=== PATIENT | male | born 1935 | race Asian ===

== ENCOUNTER 2020-06-21 21:35 | Inpatient (IN) | payer MEDICAID, SELFPAY ==
[~2020-06-21] VITALS: Ht 152.4 cm; Wt 51.7 kg
--- NOTE | 2020-06-21 21:40 | NUR ---
Patient to ER bed 1 to gown for evaluation. Side rails up.
--- NOTE | 2020-06-21 21:40 | NUR ---
# 20 gauge angiocath placed to LAC placed by FIRE prior to arrival. Flushed with 10 cc of normal saline. No evidence of infiltration noted. Patient tolerated well.
--- NOTE | 2020-06-21 21:42 | NUR ---
pt BIB BLS from home c/o of syncopal episode. pt went to stand up from sitting down and fell forward and hit his head on a table. pt was experiencing a headache and pain in his eyes previous to standing. pt denies any loss of consciousness. pt states he is not in any pain at the moment. pt states he has had one previous episode similar to this one about 5-6 months ago. pt denies chest pain, SOB, fever, chills, nausea, vomiting, blurry vision.
--- NOTE | 2020-06-21 21:47 | NUR ---
[facility] - BS 157. aware.
[2020-06-21 21:48] VITALS: BP_SYST 136
--- NOTE | 2020-06-21 21:55 | NUR ---
lab at bedside for blood draw.
--- NOTE | 2020-06-21 21:55 | NUR ---
ER Dr. NAYAK at bedside examining patient.
[2020-06-21 22:01] LABS: BASOPHILS % (AUTO) 0.4 % (0.0-2.0); EOSINOPHILS # (AUTO) 0.1 K/uL (0.0-0.4); EOSINOPHILS % (AUTO) 2.2 % (0.0-4.0); HEMATOCRIT 33.8 % (36-54); HEMOGLOBIN 11.5 g/dL (14.0-18.0); LYMPHOCYTES # (AUTO) 1.1 K/uL (1.0-5.5); LYMPHOCYTES % (AUTO) 17.6 % (20.5-51.5); MEAN CORPUSCULAR HEMOGLOBIN 31 pg (27-31); MEAN CORPUSCULAR HGB CONC 34 % (32-36); MEAN CORPUSCULAR VOLUME 90 fL (79.0-98.0); MONOCYTES # (AUTO) 0.5 K/uL (0.0-1.0); MONOCYTES % (AUTO) 8.6 % (1.7-9.3); NEUTROPHILS # (AUTO) 4.5 K/uL (1.8-7.7); NEUTROPHILS % (AUTO) 71.2 % (40.0-70.0); PLATELET COUNT (AUTO) 260 K/uL (130-430); RED BLOOD CELL COUNT(AUTO) 3.75 MIL/uL (4.2-6.2); RED CELL DISTRIBUTION WIDTH 14.6 % (9.0-15.0); WHITE BLOOD COUNT (AUTO) 6.3 K/uL (4.8-10.8)
--- NOTE | 2020-06-21 22:11 | NUR ---
radiology at bedside for chest xray.
--- NOTE | 2020-06-21 22:43 | NUR ---
spoke with son of patient and gave an update with consent of patient.
[2020-06-21 22:49] LABS: ANION GAP 5 (5-15); CHLORIDE 99 mmol/L (98-107); GLUCOSE 151 mg/dL (70-99); POTASSIUM 4.6 mmol/L (3.5-5.1); SODIUM SERUM 131 mmol/L (136-145); UREA NITROGEN, BLOOD 32 mg/dL (8-21)
[2020-06-21 22:55] LABS: ALANINE AMINOTRANSFERASE 12 U/L (12-78); ALBUMIN 3.1 g/dL (3.4-4.8); ASPARTATE AMINOTRANSFERASE 16 U/L (10-37); TOTAL BILIRUBIN 0.3 mg/dL (0.0-1.0)
[2020-06-21 22:58] LABS: PROTHROMBIN TIME 10.4 SECS (9.5-12.5)
--- NOTE | 2020-06-21 23:01 | NUR ---
critical lab reporting - troponin 0.345. aware.
[2020-06-21] MEDS ORDERED: ASPIRIN 81 MG TAB.CHEW PO ONE (23:15)
--- NOTE | 2020-06-21 23:20 | NUR ---
dr. yoder at bedside speaking with patient.
--- NOTE | 2020-06-21 23:31 | NUR ---
called and spoke with son of patient, son will be coming to hospital to speak with patient.
--- NOTE | 2020-06-21 23:50 | NUR ---
patients son at bedside speaking with dr. yoder.
[2020-06-21] MEDS ORDERED: ENAL5TAB77 PO (23:57)
[2020-06-21] MEDS ORDERED: ASPI-1155 PO (23:57)
[2020-06-21] MEDS ORDERED: ATOR10TA68 PO (23:57)
[2020-06-21] MEDS ORDERED: CLOP75TA32 PO (23:57)
--- NOTE | 2020-06-21 23:57 | NUR ---
Medication reconciliation completed with information provided by patient. Any prior medication reconciliation on file was reviewed and corrected.
--- NOTE | 2020-06-21 23:57 | NUR ---
Patient's code status is Full code paperwork completed and placed in chart.
--- NOTE | 2020-06-22 00:05 | NUR ---
PT AMBULATED TO RESTROOM WITH STEADY GAIT.
--- NOTE | 2020-06-22 01:34 | NUR ---
SPOKE WITH MEAT PASSERRADHA TO REQUEST TELE BED.
--- NOTE | 2020-06-22 01:34 | NUR ---
RECEIVED ADMIT ORDERS FROM DR. CORONADO.
--- NOTE | 2020-06-22 01:40 | NUR ---
COVID SWAB COLLECTED AND SENT TO LAB.
--- NOTE | 2020-06-22 02:24 | NUR ---
Patient will be admitted to care of KATT. Admitted to TELE unit. Will go to room 112A. Belongings list completed. Complete and up to date summary report printed. SBAR report to be given at bedside with opportunity for questions.
--- NOTE | 2020-06-22 02:27 | NUR ---
Transfer to TELE via ACLS protocol. Licensed nurse present. IV present no signs or symptoms of infiltration.
--- NOTE | 2020-06-22 02:31 | NUR ---
ADMISSION NOTE Received patient from ER via gurirving, received report from RN. Patient admitted with diagnosis of elevated troponin. Patient oriented to hospital routine, call light, toileting and safety-patient verbalized understanding.
[2020-06-22 02:49] VITALS: BP_SYST 157
--- NOTE | 2020-06-22 02:59 | NUR ---
ADMISSION PHYSICAL ASSESSMENT NOTES; took over care form nurse Batsheva. pt. awake, alert , oriented to his room and use of call light and bed control. denies any chest pain nor discomfort. HX of fall, near syncope and elevated Troponin. cardiac consult with Dr. Ventura. placed on surveillance monitor and shows sinus rhythm. moves all extremities. instructed to be bed rest for now, gave urinal. IV lock on left antecubital. on fall risk precaution, bed alarm on. on room air, no shortness of breath, noted bouts of non productive cough.
--- NOTE | 2020-06-22 03:13 | NUR ---
NOTES: pt. get out of bed without calling, bed alarm went off, pt. ambulated to the restroom and voided. reminded pt. again to use call light for help and stay in bed.
--- NOTE | 2020-06-22 04:15 | NUR ---
NOTES; pt. checked and sleeping comfortably. condition guarded. cardiac pattern remains sinus rhythm. on fall riak precaution. pt. room close to nurses station, bed alarm on.
--- NOTE | 2020-06-22 04:16 | NUR ---
CONSULT: CONSULT CALLED FOR DR. ZELAYA I SPOKE WITH PATRICE GRECO REASON FOR CONSULT: ELEVATED TROPONIN REQUESTING CONSULT: DR. BOLIVAR TELETYPEWRITER OPERATOR PHONE NUMBER: [phone]
[2020-06-22 04:50] VITALS: BP_SYST 135
--- NOTE | 2020-06-22 04:50 | NUR ---
NOTES: pt. HR drops on the low 40's. woke up and checked VS BP 135/69 HR 61, asymptomatic, denies any chest pain nor discomfort. continue to monitor.
--- NOTE | 2020-06-22 05:45 | NUR ---
NOTES: pt. get out of bed without using call light, forgetful, assisted to the restroom, able to ambulate. back to bed and repositioned self.
[2020-06-22] MEDS ORDERED: LORazepam 2 MG/ML VIAL IVP PRN (06:15)
[2020-06-22] MEDS ORDERED: HYDROcodone/ACETAMIN 10-325 MG TAB PO PRN (06:15)
[2020-06-22] MEDS ORDERED: NALOXONE HCL 0.4 MG/ML AMP (NARCAN) IVP PRN ×2 (06:15)
[2020-06-22] MEDS ORDERED: HYDROcodone/ACETAMIN 5-325 MG TAB (NORCO/ VICODIN) PO PRN (06:15)
[2020-06-22] MEDS ORDERED: ACETAMINOPHEN 325 MG TABLET PO PRN (06:15)
[2020-06-22] MEDS ORDERED: ONDANSETRON HCL 4 MG/2 ML VIAL IVP PRN (06:15)
--- NOTE | 2020-06-22 06:42 | NUR ---
CLOSING NOTES; CLOSING NOTES; pt. back to sleep. no distress. on room air. IV lock on left antecubital. cardiology consult with Dr. Ventura this am for bradycardia and elevated troponin. call light within reach. on fall risk precaution.
--- NOTE | 2020-06-22 06:54 | NUR ---
RENAL CONSULTATION PAGED REASON FOR CONSULTATION:[place] WAS CONSULT CALLED?Y PERSON WHO WAS NOTIFIED:PATRICE CONSULTING PHYSICIAN:OSCAR MESA POWER PLANT OPERATOR APPRENTICE SPECIALTY:NEPHRO POWER PLANT OPERATOR APPRENTICE PHONE NUMBER:[phone] REQUESTING PHYSICIAN:NICO SHANNON
[2020-06-22 07:59] LABS: BASOPHILS % (AUTO) 0.7 % (0.0-2.0); EOSINOPHILS # (AUTO) 0.1 K/uL (0.0-0.4); EOSINOPHILS % (AUTO) 1.4 % (0.0-4.0); HEMATOCRIT 31.2 % (36-54); HEMOGLOBIN 10.7 g/dL (14.0-18.0); LYMPHOCYTES # (AUTO) 1.1 K/uL (1.0-5.5); LYMPHOCYTES % (AUTO) 18.7 % (20.5-51.5); MEAN CORPUSCULAR HEMOGLOBIN 31 pg (27-31); MEAN CORPUSCULAR HGB CONC 34 % (32-36); MEAN CORPUSCULAR VOLUME 90 fL (79.0-98.0); MONOCYTES # (AUTO) 0.6 K/uL (0.0-1.0); MONOCYTES % (AUTO) 10.4 % (1.7-9.3); NEUTROPHILS # (AUTO) 4.2 K/uL (1.8-7.7); NEUTROPHILS % (AUTO) 68.8 % (40.0-70.0); PLATELET COUNT (AUTO) 251 K/uL (130-430); RED BLOOD CELL COUNT(AUTO) 3.47 MIL/uL (4.2-6.2); RED CELL DISTRIBUTION WIDTH 14.5 % (9.0-15.0)
[2020-06-22 08:00] VITALS: BP_SYST 166
[2020-06-22 08:03] LABS: ANION GAP 5 (5-15); CALCIUM 8.2 mg/dL (8.4-11.0); CHLORIDE 101 mmol/L (98-107); CREATININE 1.36 mg/dL (0.55-1.30); GLUCOSE 93 mg/dL (70-99); PHOSPHORUS 3.6 mg/dL (2.7-4.5); POTASSIUM 4.9 mmol/L (3.5-5.1); SODIUM SERUM 133 mmol/L (136-145); THYROID STIMULATING HORMONE 2.81 uIu/mL (0.36-3.74); UREA NITROGEN, BLOOD 30 mg/dL (8-21)
[2020-06-22 08:19] LABS: CHOLESTEROL 126 mg/dL (<200); HDL CHOLESTEROL 67 mg/dL (>45); LDL CHOLESTEROL 51 mg/dL (<100); TRIGLYCERIDES 38 mg/dL (30-150)
[2020-06-22] MEDS ORDERED: NS 500 ML IV ONE (08:30)
[2020-06-22] MEDS: ASPIRIN 81 MG TAB.CHEW PO SCH (08:35)
[2020-06-22] MEDS: LISINOPRIL 10 MG TABLET (PRINIVIL) PO SCH (08:35)
[2020-06-22] MEDS: CLOPIDOGREL BISULFATE 75 MG TABLET PO SCH (08:36)
--- NOTE | 2020-06-22 08:40 | NUR ---
alert, oriented, persistently insist to go to the bathroom, with standby assistance, gait somewhat shuffling but steady. bp taken again by the author, 166/93, with HR 78,all po meds given at this time
[2020-06-22 12:09] VITALS: BP_SYST 134
[2020-06-22] MEDS: NORMAL SALINE 5 ML DISP.SYRIN IVF SCH ×2 (13:31→21:11)
--- NOTE | 2020-06-22 13:40 | NUR ---
seen by bookie, aware of troponin elevation. no new orders. seen by attending, bun/cr trending down, renal consulation for this patient. ( 02/10.36)
[2020-06-22] MEDS ORDERED: NORMAL SALINE 5 ML DISP.SYRIN IVF SCH (14:00)
[2020-06-22] MEDS: NACL 0.9% 1,000 ML IV SCH (14:16)
[2020-06-22 15:54] VITALS: BP_SYST 158
--- NOTE | 2020-06-22 16:10 | NUR ---
seen by nephro, ivf initiated, NS at 65cc per hour. explained why he needs it, agreed with the plan. IVF running now
--- NOTE | 2020-06-22 18:07 | NUR ---
troponin trending up, last one today .396, dr khan made aware. Troponin to repeat tomorrow am. son called, referred him to talk to the unemployment specialist in am, [place] [phone]
--- NOTE | 2020-06-22 19:20 | NUR ---
Pt was received lying in bed fully awake, alert and oriented x4. Pt denies pain or discomfort at this time. No acute distress noted. playground monitor is showing SR with BBB and HR's in the 60's. IVF of NS is infusing well in LAC at 65ml/hr without any signs of infiltration. Fall and safety precautions are in place.
[2020-06-22 20:00] VITALS: BP_SYST 130
[2020-06-22] MEDS: ATORVASTATIN 10 MG TABLET PO SCH (20:47)
--- NOTE | 2020-06-22 21:30 | NUR ---
Pt is resting quietly in bed. IVF is infusing well in LAC. Call light and bedside items are within pt's reach. No c/o pain or discomfort.
--- NOTE | 2020-06-22 23:00 | NUR ---
Pt is sleeping without any distress noted. IVF is infusing well in [facility]. Fall and safety precautions are in place.
[2020-06-23] VITALS: BP_SYST 132
--- NOTE | 2020-06-23 01:00 | NUR ---
Pt is sleeping comfortably in bed. IVF is infusing well in [facility]. Fall and safety precautions are in place.
--- NOTE | 2020-06-23 03:08 | NUR ---
Pt is awake and standing at his bedside. Pt had just voided in his urinal. No c/o pain or discomfort. IVF is infusing well in LAC. Pt got back in bed after using his urinal. Fall and safety precautions are in place.
--- NOTE | 2020-06-23 05:00 | NUR ---
Pt is sleeping comfortably in bed. IVF is infusing well in [facility]. Fall and safety precautions are in place.
[2020-06-23] MEDS: NACL 0.9% 1,000 ML IV SCH ×2 (05:28→21:04)
[2020-06-23] MEDS: NORMAL SALINE 5 ML DISP.SYRIN IVF SCH ×3 (05:30→22:00)
[2020-06-23 06:30] LABS: BASOPHILS % (AUTO) 0.7 % (0.0-2.0); EOSINOPHILS # (AUTO) 0.2 K/uL (0.0-0.4); EOSINOPHILS % (AUTO) 3.6 % (0.0-4.0); HEMATOCRIT 31.5 % (36-54); HEMOGLOBIN 10.8 g/dL (14.0-18.0); LYMPHOCYTES # (AUTO) 1.1 K/uL (1.0-5.5); LYMPHOCYTES % (AUTO) 17.8 % (20.5-51.5); MEAN CORPUSCULAR HEMOGLOBIN 31 pg (27-31); MEAN CORPUSCULAR HGB CONC 34 % (32-36); MEAN CORPUSCULAR VOLUME 90 fL (79.0-98.0); MONOCYTES # (AUTO) 0.7 K/uL (0.0-1.0); MONOCYTES % (AUTO) 11.5 % (1.7-9.3); NEUTROPHILS # (AUTO) 4.1 K/uL (1.8-7.7); NEUTROPHILS % (AUTO) 66.4 % (40.0-70.0); PLATELET COUNT (AUTO) 235 K/uL (130-430); RED BLOOD CELL COUNT(AUTO) 3.51 MIL/uL (4.2-6.2); RED CELL DISTRIBUTION WIDTH 14.7 % (9.0-15.0); WHITE BLOOD COUNT (AUTO) 6.1 K/uL (4.8-10.8)
--- NOTE | 2020-06-23 06:47 | NUR ---
Pt is awake and resting comfortably in bed. IVF is infusing well in LAC. Fall and safety precautions are in place. Will endorse to day shift nurse.
[2020-06-23 07:14] LABS: ALANINE AMINOTRANSFERASE 7 U/L (12-78); ALBUMIN 2.8 g/dL (3.4-4.8); ANION GAP 5 (5-15); ASPARTATE AMINOTRANSFERASE 17 U/L (10-37); CALCIUM 8.2 mg/dL (8.4-11.0); CHLORIDE 102 mmol/L (98-107); CREATININE 1.19 mg/dL (0.55-1.30); GLUCOSE 86 mg/dL (70-99); POTASSIUM 4.9 mmol/L (3.5-5.1); SODIUM SERUM 134 mmol/L (136-145); THYROID STIMULATING HORMONE 2.85 uIu/mL (0.36-3.74); TOTAL BILIRUBIN 0.4 mg/dL (0.0-1.0); UREA NITROGEN, BLOOD 23 mg/dL (8-21)
--- NOTE | 2020-06-23 07:20 | NUR ---
RECEIVED REPORT FROM SKIVER WELT END RN. BETH ARTEAGAOX4, FRIENDLY, RESTING IN BED, NAD NOTED.
[2020-06-23 08:00] VITALS: BP_SYST 147
[2020-06-23] MEDS: LISINOPRIL 10 MG TABLET (PRINIVIL) PO SCH (09:01)
[2020-06-23] MEDS: CLOPIDOGREL BISULFATE 75 MG TABLET PO SCH (09:02)
[2020-06-23] MEDS: ASPIRIN 81 MG TAB.CHEW PO SCH (09:02)
--- NOTE | 2020-06-23 09:25 | NUR ---
OFF FLOOR FOR DIAGNOSTIC TEST. MED PASS DONE, Pt TOLERATED WELL, ATE 75% OF BREAKFAST. RESP REG NON-LABORED.
--- NOTE | 2020-06-23 09:51 | NUR ---
PT RETURNED TO FLOOR AAOX4, RESP REG NON-LABORED, NAD NOTED, NURSING SHIFT ASSESSMENT DONE
--- NOTE | 2020-06-23 10:15 | NUR ---
MED PASS DONE, PT TOLERATED PO MEDS WELL. VS WNL, NAD NOTED. PENDING CT SCAN RESULTS.
[2020-06-23 12:07] VITALS: BP_SYST 150
--- NOTE | 2020-06-23 13:00 | NUR ---
PT REQUESTING CLIENT SERVICE ASSOCIATE TO CALL MD FOR D/C, PT WANTS TO GO HOME. AFTER DISCUSSION AND EXPLANATION OF WHY THE DR HELD HIS D/C, PT BECAME CALMER AND VERBALIZED UNDERSTANDING.
--- NOTE | 2020-06-23 15:28 | NUR ---
CONSULT UROLOGY SEVERE HYDRONEPHROSIS DR KRISHNA PRABHA [phone] S/W [facility] OFFICE
[2020-06-23 16:10] VITALS: BP_SYST 140
--- NOTE | 2020-06-23 17:30 | NUR ---
S/W DR PRABHA KRISHNA, DISCUSSED US RESULTS FROM YESTERDAY THAT ARE NOW CONFIRMED TO BE SEVERE HYDRONEPHROSIS W/ OBSTRUCTION. NEW ORDERS GIVEN: FOR COLON CATH W/ U/A & U/A C&S; AM LABS(PSA,CBC,BMP).
--- NOTE | 2020-06-23 18:00 | NUR ---
COLON CATH INSERTED, 16 F, PT TOLERATED WELL.MYSELF ,PLUS TWO OTHER NURSES AT BEDSIDE. URINE OUTPUT POST COLON INSERTION 650 ML. FC SECURED TO PATIENTS , DRAINING TO GRAVITY. U/A AND UC COLLECTED AND SENT TO LAB, FOR ANALYSIS.
[2020-06-23 18:55] LABS: CLARITY/URINE CLEAR (CLEAR); COLOR,URINE YELLOW (YELLOW); GLUCOSE,URINE NEGATIVE (NEGATIVE); KETONES,URINE NEGATIVE (NEGATIVE); PROTEIN URINE NEGATIVE (NEGATIVE)
[2020-06-23 18:56] LABS: BILIRUBIN,URINE NEGATIVE (NEGATIVE); BLOOD, URINE TRACE (NEGATIVE); LEUKOCYTE ESTERASE ,URINE NEGATIVE (NEGATIVE); NITRITE, URINE NEGATIVE (NEGATIVE); UROBILINOGEN,URINE 0.2 (0.2-1.0)
[2020-06-23 18:58] LABS: WBC,URINE 0-3 /HPF (0-3)
[2020-06-23 18:59] LABS: BACTERIA,URINE FEW /HPF (None Seen); YEAST,URINE None Seen /HPF (None Seen)
[2020-06-23 19:00] LABS: MUCUS,URINE None Seen /LPF (None Seen); TRICHOMONAS,URINE None Seen /HPF (None Seen)
--- NOTE | 2020-06-23 19:17 | NUR ---
REPORT TO DISASTER RECOVERY ANALYST KARLA MARIANO AT BS. PT CONT SITTING ON BED, LEGS DANGLING, EATING DINNER. COLON CATH TO GRAVITY. NAD NOTED.
--- NOTE | 2020-06-23 19:20 | NUR ---
Pt was received sitting on his bed with both feet on the floor. Pt is fully awake, alert and oriented x4. Melo catheter to gravity drainage noted with blood tinged urine and no blood clots noted. Pt denies pain or discomfort at this time. IVF of NS is infusing well in LAC at 65ml/hr without any signs of infiltration. Fall and safety precautions are in place.
--- NOTE | 2020-06-23 19:45 | NUR ---
Pt's son Youseff called and was given updates. All his questions were answered. Pt's son wants to speak with Crude Oil Driver and Urologist. He was informed messages will be left on pt's chart for both doctors to call him back. He prefers call back at [phone].
[2020-06-23 20:00] VITALS: BP_SYST 148
[2020-06-23] MEDS: ATORVASTATIN 10 MG TABLET PO SCH (20:42)
--- NOTE | 2020-06-23 20:42 | NUR ---
HS medication given. IVF is infusing well in LAC. Melo cath to gravity drainage still with blood tinged urine, but no blood clots seen. Fall and safety precautions are in place.
--- NOTE | 2020-06-23 22:35 | NUR ---
Pt is resting quietly in bed. No c/o pain or discomfort. IVF is infusing well in LAC. Fall and safety precautions are in place.
--- NOTE | 2020-06-24 | NUR ---
Pt is awake and resting quietly in bed. No c./\/o pain or discomfort. IVF is infusing well in LAC. Fall and safety precautions are in place.
--- NOTE | 2020-06-24 02:00 | NUR ---
Pt is sleeping comfortably in bed. No respiratory distress noted. IVF is infusing well in LAC. Fall and safety precautions are in place.
--- NOTE | 2020-06-24 04:00 | NUR ---
No respiratory distress noted. Pt is sleeping comfortably in bed. Fall and safety precautions are in place. Melo Cath to gravity drainage still draining blood tinged urine, but no blood clots seen. Fall and safety precautions are in place.
[2020-06-24] MEDS: NORMAL SALINE 5 ML DISP.SYRIN IVF SCH ×2 (06:00→14:00)
--- NOTE | 2020-06-24 06:00 | NUR ---
Pt is awake and resting comfortably in bed. Melo Cath to gravity drainage remains secured to pt's left thigh and draining blood tinged urine. No blood clots noted. Pt denies pain or discomfort. IVF is infusing well in LAC. Fall and safety precautions are in place. Will endorse to day shift nurse.
[2020-06-24] MEDS: NACL 0.9% 1,000 ML IV SCH (06:03)
[2020-06-24 06:20] LABS: BASOPHILS % (AUTO) 0.6 % (0.0-2.0); EOSINOPHILS # (AUTO) 0.2 K/uL (0.0-0.4); EOSINOPHILS % (AUTO) 2.4 % (0.0-4.0); HEMATOCRIT 31.6 % (36-54); HEMOGLOBIN 10.7 g/dL (14.0-18.0); LYMPHOCYTES # (AUTO) 1.3 K/uL (1.0-5.5); LYMPHOCYTES % (AUTO) 16.5 % (20.5-51.5); MEAN CORPUSCULAR HEMOGLOBIN 31 pg (27-31); MEAN CORPUSCULAR HGB CONC 34 % (32-36); MEAN CORPUSCULAR VOLUME 90 fL (79.0-98.0); MONOCYTES # (AUTO) 0.8 K/uL (0.0-1.0); MONOCYTES % (AUTO) 10.6 % (1.7-9.3); NEUTROPHILS # (AUTO) 5.3 K/uL (1.8-7.7); NEUTROPHILS % (AUTO) 69.9 % (40.0-70.0); PLATELET COUNT (AUTO) 235 K/uL (130-430); RED CELL DISTRIBUTION WIDTH 14.7 % (9.0-15.0); WHITE BLOOD COUNT (AUTO) 7.6 K/uL (4.8-10.8)
[2020-06-24 06:36] LABS: ANION GAP 4 (5-15); CALCIUM 8.1 mg/dL (8.4-11.0); CHLORIDE 101 mmol/L (98-107); GLUCOSE 86 mg/dL (70-99); POTASSIUM 4.9 mmol/L (3.5-5.1); SODIUM SERUM 131 mmol/L (136-145); UREA NITROGEN, BLOOD 24 mg/dL (8-21)
--- NOTE | 2020-06-24 07:30 | NUR ---
Opening notes, Received pt in bed, pt is aaox4, denies pain, no sob, no fever. pt has pete cath draing pink colored urine. safety precaution in place. call light in reach. bed in low position. encouraged to call for assist and pain meds. will cont to monitor.
[2020-06-24 07:50] VITALS: BP_SYST 148
--- NOTE | 2020-06-24 08:10 | NUR ---
dr morgan and dr khan here and seen patient.
[2020-06-24] MEDS: LISINOPRIL 10 MG TABLET (PRINIVIL) PO SCH (08:24)
[2020-06-24] MEDS ORDERED: TAMSULOSIN HCL 0.4 MG CAP PO SCH (09:00)
[2020-06-24] MEDS ORDERED: FINASTERIDE 5 MG TABLET (PROSCAR) PO SCH (09:00)
[2020-06-24] MEDS ORDERED: FINA5TAB3 PO (10:15)
[2020-06-24] MEDS ORDERED: TAMS-11 PO (10:15)
[2020-06-24 12:11] VITALS: BP_SYST 114
[2020-06-24 12:55] VITALS: BP_SYST 114
--- NOTE | 2020-06-24 16:00 | NUR ---
D/C Patient Patient given medication reconciliation form and D/C instructions. Exit Care provided. Patient verbalized understanding. MD discussed with patient the results and treatment provided. Ambulatory with steady gait for discharge to home. Patient in stable condition, ID band removed. IV catheter removed, intact and dressing applied, no active bleeding. eRx of flomax and finasteride given. Patient educated on pain management. All belongings sent with patient. Addendum: 06/24/20 at 1622 by Quan Odell RN Pt's david Kim picked up patient, Julio said pt already has an appointment with pt's PMD and they will get the Urology consult on Sunday. Julio taught on draining the pt's leg bag and changing to the pete bag at night.
[2020-06-25 08:06] LABS: % FREE PSA 46.3 % (.); FREE PSA 0.37 ng/mL; PROSTATE SPECIFIC AG TOTAL 0.8 ng/mL (0.0-4.0)
--- NOTE | 2020-06-30 11:45 | NUR ---
Discharge Follow Up Phone Call Phoned the number listed for patient, , and spoke with patient's son, Anjali. He stated patient was doing fine. They were managing the pete care. Patient was currently at his follow up appointment with his PCP and obtaining a urology referral. No questions or concerns.
== END 2020-06-24 17:20 | disposition home or self-care (01) | DRG 422 ==
LOC: SED 21:35 → STU 06-22 01:33
PROVIDERS: ADMIT Internal Medicine Hospice and Palliative Medicine; ATTEND Internal Medicine Hospice and Palliative Medicine
DX: E86.0 Dehydration (principal); I25.10 Atherosclerotic heart disease of native coronary artery without angina pectoris; I21.A1 Myocardial infarction type 2; E78.00 Pure hypercholesterolemia, unspecified; M16.11 Unilateral primary osteoarthritis, right hip; E78.5 Hyperlipidemia, unspecified; N13.30 Unspecified hydronephrosis; R31.9 Hematuria, unspecified; Z20.828 Contact with and (suspected) exposure to other viral communicable diseases; R33.9 Retention of urine, unspecified; Z79.82 Long term (current) use of aspirin; Z79.899 Other long term (current) drug therapy; Z95.1 Presence of aortocoronary bypass graft; N17.0 Acute kidney failure with tubular necrosis
CPT/HCPCS: 36415; 71045; 76770; 80048; 80053; 80061; 81000-TC; 82962; 83735-TC; 83880; 84100-TC; 84153; 84443-TC; 84484; 85025; 85610-TC; 85730-TC; 87086; 93005; 93306; 93880; 99285; G0378; J7030

== ENCOUNTER 2021-05-05 18:27 | Emergency (ER) | payer OTHER, MEDICAID, SELFPAY ==
[~2021-05-05] VITALS: Ht 157.5 cm; Wt 68.0 kg
[~2021-05-05 18:27] MED LIST: ASPI-1155 PO; ATOR10TA68 PO; CLOP75TA32 PO; ENAL5TAB77 PO; FINA5TAB3 PO; LEVO500T89 PO; TAMS-11 PO
[2021-05-05 18:50] VITALS: BP_SYST 146
--- NOTE | 2021-05-05 19:00 | NUR ---
PT TO [facility] 1 FOR EVALUATION.
--- NOTE | 2021-05-05 19:02 | NUR ---
DR. COLLINS AT BEDSIDE TO EVALUATE.
[2021-05-05] MEDS ORDERED: AMOX-423 PO (19:17)
[2021-05-05 19:30] VITALS: BP_SYST 146
[2021-05-05] MEDS ORDERED: DIPH-TET-PERTUS Vaccine 0.5 ML VIAL (ADACEL) I.M. ONE (19:30)
--- NOTE | 2021-05-05 19:30 | NUR ---
Pt BIB family to ED C/O dog bite last night with right forearm puncture wound associated with mild, intermittent, nonradiating pain and bleeding. Patient was bit by his own dog last night. He wrapped the area, but he comes to the ED after he started bleeding again. Patient is currently on aspirin and Lovenox. Patient last tetanus shot was over 10 years ago. Dog is reported to have all his shots. No alleviating or exacerbating factors.
--- NOTE | 2021-05-05 19:45 | NUR ---
Dr. Levy bedside procedure well tolerated
--- NOTE | 2021-05-05 20:00 | NUR ---
Patient given written and verbal discharge instructions and verbalizes understanding. ER MD discussed with patient the results and treatment provided. Patient in stable condition. ID arm band removed. Rx of Augmentin given. Patient educated on pain management and to follow up with PMD. Pain Scale 0/10 Opportunity for questions provided and answered. Medication side effect fact sheet provided.
== END 2021-05-05 20:00 | disposition home or self-care (01) ==
LOC: SED 18:27
DX: S51.831A Puncture wound without foreign body of right forearm, initial encounter (principal); E11.9 Type 2 diabetes mellitus without complications; E78.00 Pure hypercholesterolemia, unspecified; Z79.899 Other long term (current) drug therapy; W54.0XXA Bitten by dog, initial encounter; Y93.89 Activity, other specified; Y92.89 Other specified places as the place of occurrence of the external cause; Y99.8 Other external cause status
CPT/HCPCS: 90715; 99283

== ENCOUNTER 2023-04-13 20:46 | Emergency (ER) | payer OTHER, MEDICAID ==
[~2023-04-13] VITALS: Ht 152.4 cm; Wt 45.4 kg
[~2023-04-13 20:46] MED LIST changes: +AMOX-423 PO; +LEVO-62 PO; -LEVO500T89 PO
[2023-04-13 20:59] VITALS: BP_SYST 150; PULSE 70; RESP 16; TEMP 97.9; O2SAT 99
[2023-04-13] MEDS ORDERED: AUG875 PO (21:47)
[2023-04-13 22:01] VITALS: BP_SYST 140; PULSE 70; RESP 16; TEMP 97.9; O2SAT 99
== END 2023-04-13 22:01 | disposition home or self-care (01) ==
LOC: SED 20:46
DX: S61.411A Laceration without foreign body of right hand, initial encounter (principal); S61.451A Open bite of right hand, initial encounter; E11.9 Type 2 diabetes mellitus without complications; I10 Essential (primary) hypertension; Z79.899 Other long term (current) drug therapy; W54.0XXA Bitten by dog, initial encounter; Y93.89 Activity, other specified; Y92.89 Other specified places as the place of occurrence of the external cause; Y99.8 Other external cause status
CPT/HCPCS: 99283